=== PATIENT | male | born 1955 | race Asian ===

== ENCOUNTER 2018-05-02 06:13 | Day surgery (SDC) | payer BC ==
[2018-05-02] MEDS ORDERED: ONDANSETRON 4 MG/2 ML VIAL IV ONE (06:14)
[2018-05-02] MEDS ORDERED: IV NORMAL SALINE 1000 ML BAG IV ONE (06:14)
[2018-05-02] MEDS ORDERED: hydrALAZINE HCL 20 MG/1 ML VIAL IV ONE (06:14)
[2018-05-02] MEDS ORDERED: KETOROLAC 0.5% OPHT DROP 3 ML BOTTLE ONE (06:25)
[2018-05-02] MEDS ORDERED: CIPROFLOXACIN 0.3% OPHT DROP 2.5 ML BOTTLE ONE (06:25)
[2018-05-02] MEDS ORDERED: TROPICAMIDE 1% OPHT DROP 3 ML BOTTLE ONE (06:26)
[2018-05-02] MEDS ORDERED: PHENYLEPHRINE 2.5% OPHT DROP 2 ML BOTTLE ONE (06:26)
[2018-05-02] MEDS ORDERED: CYCLOPENTOLATE 1% OPHT DROP 2 ML BOTTLE ONE (06:26)
[2018-05-02 06:41] LABS: *BILIRUBIN,URIN NEGATIVE (NEGATIVE); *BLOOD, URINE NEGATIVE (NEGATIVE); *CLARITY,URINE CLEAR (CLEAR); *COLOR,URINE YELLOW (YELLOW); *KETONES,URINE NEGATIVE (NEGATIVE); *UROBILINOGEN,URINE 0.2 E.U./dl (NORMAL); BASOPHILS # (AUTO) 0.1 K/uL (0.0-8.0); EOSINOPHILS # (AUTO) 0.3 K/uL (0.0-0.7); EOSINOPHILS % (AUTO) 3.9 % (0.0-7.0); HEMATOCRIT 48.1 % (36.7-47.1); HEMOGLOBIN 16.2 g/dL (12.5-16.3); LEUKOCYTE ESTERASE ,URINE NEGATIVE (NEGATIVE); LYMPHOCYTES # (AUTO) 1.9 K/uL (20.0-40.0); LYMPHOCYTES % (AUTO) 23.3 % (20.5-51.5); MEAN CORPUSCULAR HEMOGLOBIN 29.5 uug (23.8-33.4); MEAN CORPUSCULAR HGB CONC 34 g/dL (32.5-36.3); MEAN CORPUSCULAR VOLUME 87.3 fL (73.0-96.2); MONOCYTES # (AUTO) 0.8 K/uL (2.0-10.0); NEUTROPHILS % (AUTO) 61.8 % (38.5-71.5); NITRITE, URINE NEGATIVE (NEGATIVE); PH,URINE 5.5 (5.0-8.0); PLATELET COUNT (AUTO) 289 K/uL (152-348); RED BLOOD CELL COUNT(AUTO) 5.51 MIL/uL (4.06-5.63); UGLUCOSE 1+ (NEGATIVE); WHITE BLOOD COUNT (AUTO) 8.1 K/uL (3.6-10.2)
[2018-05-02 06:49] LABS: CREATININE 1.1 mg/dL (0.6-1.3)
[2018-05-02 06:52] LABS: RBC,URINE NONE SEEN /HPF (0-3)
[2018-05-02 06:53] LABS: BACTERIA,URINE FEW /HPF (NONE SEEN); SQUAMOUS EPITHELIAL CELL,UR FEW /HPF (NONE SEEN); WBC,URINE 0-3 /HPF (0-3)
[2018-05-02 06:55] LABS: BILIRUBIN,TOTAL 0.5 mg/dL (0.2-1.0); TOTAL PROTEIN, SERUM 8.2 g/dL (6.4-8.2)
[2018-05-02] MEDS ORDERED: BALANCED SALT IRRIG SOLN COMB1 500 ML, EPINEPHRINE-PF 1:1000 0.5 MG IO ONE ×2 (07:00)
[2018-05-02] MEDS ORDERED: MOXIFLOXACIN HCL 3 ML OPHT DROPS ONE (07:08)
[2018-05-02] MEDS ORDERED: LIDOCAINE-MPF 2% 5 ML VIAL ONE (07:08)
[2018-05-02] MEDS ORDERED: ACETYLCHOLINE CHLORIDE 1% OPHT 1 EA KIT ONE (07:09)
[2018-05-02] MEDS ORDERED: TIMOLOL MALEATE 0.5% OPHT DROP 5 ML BOTTLE ONE (07:09)
[2018-05-02] MEDS ORDERED: BALANCED SALT IRRIG SOLN COMB2 15 ML IRRIG.SOLN ONE (07:09)
[2018-05-02] MEDS ORDERED: TETRACAINE HCL 0.5% OPHT DROP 2 ML BOTTLE ONE (07:09)
[2018-05-02] MEDS ORDERED: NEO/POLYMYX B/DEXAME OPHT OINT 3.5 GM TUBE ONE (07:09)
[2018-05-02] MEDS ORDERED: HYALURONIDASE,OVINE 200 UNITS/ML VIAL ONE (07:10)
[2018-05-02] MEDS ORDERED: HYALURONATE SODIUM 8.5 MG/0.85 ML DISP.SYRIN ONE (07:10)
[2018-05-02] MEDS ORDERED: HYALURONATE SODIUM 12.8 MG/0.8 ML DISP.SYRIN ONE (07:10)
[2018-05-02] MEDS ORDERED: Z GUARD REMEDY PASTE 57 GM TUBE ONE (07:30)
[2018-05-02] MEDS ORDERED: FENTANYL CITRATE 100 MCG/2 ML AMPUL ONE (07:42)
[2018-05-02] MEDS ORDERED: BALANCED SALT IRRIG SOLN COMB1 500 ML ONE (07:51)
== END 2018-05-02 09:30 | disposition home or self-care (01) ==
LOC: DS 06:13
PROVIDERS: ATTEND Ophthalmology
DX: E11.36 Type 2 diabetes mellitus with diabetic cataract (principal); Z87.891 Personal history of nicotine dependence; K21.9 Gastro-esophageal reflux disease without esophagitis; Z79.01 Long term (current) use of anticoagulants; Z79.899 Other long term (current) drug therapy
CPT/HCPCS: 36415; 66984; 71045; 80053; 81001; 82962; 83036; 85025; 85730; 93005; J0171; J0360; J2405; J3010; J3471; J3490; J7321 ×2; V2632; A4663; J7030

== ENCOUNTER 2019-09-30 07:11 | Outpatient (CLI) | payer BC | END 2019-09-30 23:59 | disposition home or self-care (01) | LOC: LAB 07:11 | PROVIDERS: ATTEND Ophthalmology | DX: Z01.812 Encounter for preprocedural laboratory examination (principal); Z11.59 Encounter for screening for other viral diseases ==

== ENCOUNTER 2019-10-02 06:33 | Day surgery (SDC) | payer BC ==
[~2019-10-02 06:33] MED LIST: BALANCED SALT IRRIG SOLN COMB1 500 ML, EPINEPHRINE-PF 1:1000 0.5 MG IO ONE
[2019-10-02] MEDS ORDERED: ONDANSETRON 4 MG/2 ML VIAL IV ONE ×2 (06:34)
[2019-10-02] MEDS ORDERED: IV NORMAL SALINE 1000 ML BAG IV ONE (06:34)
[2019-10-02] MEDS ORDERED: ESMOLOL HCL 100 MG/10 ML VIAL IV ONE ×2 (06:34)
[2019-10-02] MEDS ORDERED: CYCLOPENTOLATE 1% OPHT DROP 2 ML BOTTLE ONE (06:40)
[2019-10-02] MEDS ORDERED: KETOROLAC 0.5% OPHT DROP 3 ML BOTTLE ONE (06:40)
[2019-10-02] MEDS ORDERED: CIPROFLOXACIN 0.3% OPHT DROP 2.5 ML BOTTLE ONE (06:40)
[2019-10-02] MEDS ORDERED: TROPICAMIDE 1% OPHT DROP 3 ML BOTTLE ONE (06:41)
[2019-10-02] MEDS ORDERED: PHENYLEPHRINE 2.5% OPHT DROP 2 ML BOTTLE ONE (06:41)
[2019-10-02] MEDS ORDERED: BUPIVACAINE PF 0.5% 30 ML VIAL ONE (07:02)
[2019-10-02] MEDS ORDERED: LIDOCAINE-MPF 2% 5 ML VIAL ONE (07:02)
[2019-10-02] MEDS ORDERED: MOXIFLOXACIN HCL 3 ML OPHT DROPS ONE (07:02)
[2019-10-02] MEDS ORDERED: BALANCED SALT IRRIG SOLN COMB2 15 ML IRRIG.SOLN ONE (07:02)
[2019-10-02] MEDS ORDERED: ACETYLCHOLINE CHLORIDE 1% OPHT 1 EA KIT ONE (07:02)
[2019-10-02] MEDS ORDERED: HYALURONATE SODIUM 12.8 MG/0.8 ML DISP.SYRIN ONE (07:03)
[2019-10-02] MEDS ORDERED: TETRACAINE HCL 0.5% OPHT DROP 2 ML BOTTLE ONE ×2 (07:08→07:48)
[2019-10-02] MEDS ORDERED: NEO/POLYMYX B/DEXAME OPHT OINT 3.5 GM TUBE ONE (07:09)
[2019-10-02] MEDS ORDERED: TRYPAN BLUE 0.5 ML DISP.SYRIN ONE (07:11)
[2019-10-02] MEDS ORDERED: HYALURONIDASE,OVINE 200 UNITS/ML VIAL ONE (07:31)
[2019-10-02] MEDS ORDERED: FENTANYL CITRATE 100 MCG/2 ML AMPUL ONE (07:37)
[2019-10-02] MEDS ORDERED: PHENYLEPHRINE 1% (EXTRA STR) NASAL SPRAY NS ONE (07:48)
[2019-10-02] MEDS ORDERED: ATROPINE SULFATE 1% OPHT DROP 2 ML ONE (07:48)
[2019-10-02] MEDS ORDERED: PHENYLEPHRINE 10% OPHT DROP 5 ML BOTTLE OP PRN (08:00)
[2019-10-02] MEDS ORDERED: BALANCED SALT IRRIG SOLN COMB1 0 ML ONE (08:23)
[2019-10-02] MEDS ORDERED: TIMOLOL MALEATE 0.5% OPHT DROP 5 ML BOTTLE ONE (08:36)
== END 2019-10-02 09:50 | disposition home or self-care (01) ==
LOC: DS 06:33
PROVIDERS: ATTEND Ophthalmology
DX: E11.36 Type 2 diabetes mellitus with diabetic cataract (principal); H25.89 Other age-related cataract; I10 Essential (primary) hypertension; Z79.899 Other long term (current) drug therapy; Z98.890 Other specified postprocedural states
CPT/HCPCS: 71045; A4663; J0171; J2405; J3010; J3471; J3490; J7030; J7321; Q9968; V2632